=== PATIENT | male | born 1985 | race Caucasian/White ===

== ENCOUNTER 2019-11-14 22:59 | Emergency (ER) | payer MEDICAID ==
[~2019-11-14] VITALS: Ht 177.8 cm; Wt 76.2 kg
--- NOTE | 2019-11-14 23:30 | NUR ---
Dr. Corrigan at bedside for MSE.
--- NOTE | 2019-11-14 23:31 | NUR ---
Radiology aware of new [facility] order.
[2019-11-14] MEDS ORDERED: CLINDAMYCIN HCL 150 MG CAPSULE ONE (23:45)
[2019-11-14] MEDS ORDERED: CLINDAMYCIN HCL 150 MG CAPSULE PO ONE (23:45)
--- NOTE | 2019-11-15 00:18 | NUR ---
[facility] Baltazar at bedside.
--- NOTE | 2019-11-15 00:46 | NUR ---
MD cleared pt for written and verbal after care instructions given. Stressed follow up within [address] Corrigan for cellulitis/wound check, or return to ER for worsening s/s. Patient verbalizes understanding of instructions DC. Patient discharged to home in stable condition, ambulates in steady gait.
[2019-11-15 00:47] VITALS: BP 116/77
== END 2019-11-15 00:47 | disposition home or self-care (01) ==
LOC: ER 23:02
DX: L03.116 Cellulitis of left lower limb (principal); I89.1 Lymphangitis; F17.210 Nicotine dependence, cigarettes, uncomplicated; L97.529 Non-pressure chronic ulcer of other part of left foot with unspecified severity
CPT/HCPCS: 73590; A4663

== ENCOUNTER 2019-11-17 02:53 | Emergency (ER) | payer SELFPAY ==
[~2019-11-17] VITALS: Ht 182.9 cm; Wt 80.7 kg
--- NOTE | 2019-11-17 03:06 | NUR ---
Dr. Corrigan at bedside for MSE
--- NOTE | 2019-11-17 03:25 | NUR ---
Patient discharged to home in stable condition. Written and verbal after care instructions given. Patient verbalizes understanding of instructions. Stressed follow up or return to ER for worsening s/s. aa/ox4. able to speak in complete sentences. follows commands no s/s of distress respirations even and unlabored ambulatory with steady gait all belongings with pt
[2019-11-17 03:26] VITALS: BP 130/73
== END 2019-11-17 03:27 | disposition home or self-care (01) ==
LOC: ER 02:55
DX: L03.116 Cellulitis of left lower limb (principal)
CPT/HCPCS: A4663

== ENCOUNTER 2020-03-23 12:55 | Emergency (ER) | payer SELFPAY ==
[~2020-03-23] VITALS: Ht 172.7 cm; Wt 79.4 kg
--- NOTE | 2020-03-23 13:06 | NUR ---
PT IS IN ROOM #1B. DR CASILLAS EVALUATED THE PT.
[2020-03-23] MEDS ORDERED: HYDROCODONE/APAP 5-325MG TABLET ONE (13:13)
[2020-03-23] MEDS ORDERED: HYDROCODONE/APAP 5-325MG TABLET PO ONE (13:15)
--- NOTE | 2020-03-23 13:55 | NUR ---
PT WAS D/C'd TO HOME. D/C INSTRUCTIONS GIVEN TO THE PT BY DR CASILLAS.
[2020-03-23 13:57] VITALS: BP 135/86
== END 2020-03-23 13:57 | disposition home or self-care (01) ==
LOC: ER 12:55
DX: S83.91XA Sprain of unspecified site of right knee, initial encounter (principal); S80.11XA Contusion of right lower leg, initial encounter; S80.811A Abrasion, right lower leg, initial encounter; S60.511A Abrasion of right hand, initial encounter; V29.9XXA Motorcycle rider (driver) (passenger) injured in unspecified traffic accident, initial encounter; Y92.89 Other specified places as the place of occurrence of the external cause
CPT/HCPCS: 73590; A4663

== ENCOUNTER 2020-04-03 00:27 | Emergency (ER) | payer SELFPAY ==
[~2020-04-03] VITALS: Ht 182.9 cm; Wt 79.4 kg
--- NOTE | 2020-04-03 00:51 | NUR ---
Dr Santos into eval patient.
[2020-04-03] MEDS ORDERED: CEFTRIAXONE 1 G in IV DEXTROSE 5% 50 ML IV ONE (01:00)
[2020-04-03] MEDS ORDERED: VANCOMYCIN IV 1,000 MG in IV DEXTROSE 5% 250 ML IV ONE (01:00)
[2020-04-03] MEDS ORDERED: KETOROLAC TROMETHAMINE 30 MG INJ IVP ONE (01:00)
[2020-04-03] MEDS ORDERED: KETOROLAC TROMETHAMINE 30 MG INJ ONE (01:05)
[2020-04-03] MEDS ORDERED: VANCOMYCIN IV 200 ML ONE (01:06)
[2020-04-03] MEDS ORDERED: CEFTRIAXONE /D5W 50ML IVPB **ER PYXIS IV ONE (01:06)
--- NOTE | 2020-04-03 04:36 | NUR ---
PT WAS D/C'd TO HOME AFTER ER MD RE-EVALUATION. D/C INSTRUCTIONS GIVEN TO THE PT BY DR SOFIA.
[2020-04-03 04:39] VITALS: BP 136/87
== END 2020-04-03 04:41 | disposition home or self-care (01) ==
LOC: ER 00:30
DX: L03.115 Cellulitis of right lower limb (principal); S80.211D Abrasion, right knee, subsequent encounter; V29.9XXD Motorcycle rider (driver) (passenger) injured in unspecified traffic accident, subsequent encounter
CPT/HCPCS: 29505; 96365; 96366; 96367; 96375; 99284; J0696; J1885; J3370; A4663; J7030